=== PATIENT | male | born 1985 | race Caucasian/White ===

== ENCOUNTER 2017-07-27 14:46 | Emergency (ER) | payer MEDICAID, SELFPAY ==
[2017-07-27 14:46] VITALS: BP 161/85; PULSE 116; RESP 13; TEMP 37.3; O2SAT 95; BMI 31.0
--- NOTE | 2017-07-27 15:06 | RAD_ITS ---
STUDY: X-RAY CHEST REASON FOR EXAM: Male, 32 years old. Chest pain TECHNIQUE: PA and lateral views of the chest. COMPARISON: October 13, 2015 chest x-ray FINDINGS: The lungs are clear and expanded. There is no demonstrated pleural abnormality. Normal size heart. Normal mediastinum and stiven. Normal visualized pulmonary arteries. Normal visualized aortic arch and descending thoracic aorta. Normal visualized thoracic spine. Normal visualized ribs, clavicles, and shoulders. There is no demonstrated abnormality of the visualized soft tissue structures of the upper abdomen. RAD/Chest PA and Lateral IMPRESSION: Normal x-ray examination of the chest. Electronically Signed: Lindsay Moncada MD at 16:31 EST Tel , Service support ,
--- NOTE | 2017-07-27 15:06 | EKG12_ITS ---
Test Reason : CP Blood Pressure : / mmHG Vent. Rate : 109 BPM Atrial Rate : 109 BPM P-R Int : 164 ms QRS Dur : 066 ms QT Int : 298 ms P-R-T Axes : 048 048 028 degrees QTc Int : 401 ms Sinus tachycardia Otherwise normal ECG Confirmed by LUCA RIBERA ([id number]), editor house organ RYAN LARIOS ([id number] on 07/30/2017 1:18:59 PM Referred By: IRIS Confirmed By:LUCA RIBERA
[2017-07-27 15:26] LABS: Absolute Lymphocyte Count 2.39 X10^3/ul (0.83-4.51); Absolute Neutrophil Count 10.1 X10^3/uL (2.0-7.7); Basophil# 0.05 X10^3/uL; Basophil% 0.4 % (0-1); Eosinophil# 0.19 X10^3/uL; Eosinophils% 1.4 % (0-5); Hemoglobin 14.3 g/dl (13.0-16.5); Lymphocyte # 2.39 X10^3/ul (4.0); Lymphocyte % 17.4 % (19-41); Mean Corpuscular Hgb 30.6 pg (27.0-32.0); Mean Corpuscular Volume 89.9 fL (80-94); Mean Platelet Vol. 11.6 fl (6.2-12.0); Monocyte# 0.98 X10^3/uL; Monocyte% 7.1 % (0-10); Neutrophil # 10.11 X10^3/uL (2.7-7.7); Neutrophil % 73.4 % (47-70); Platelet Count 242 K/mm3 (150-450); RBC Distribution Width CV 13.6 % (11.6-14.6); RBC Distribution Width SD 45.1 fl (35.1-43.9); Red Blood Count 4.67 M/mm3 (4.6-6.2); White Blood Count 13.8 K/mm3 (4.4-11.0)
[2017-07-27 15:29] LABS: POSITIVE COUNT NO; POSITIVE DIFFERENTIAL NO; POSITIVE MORPHOLOGY NO
[2017-07-27 15:42] LABS: Anion Gap 10 (5-15); BUN 13 mg/dL (7-18); BUN/Creat Ratio 14.2 RATIO (10-20); Chloride 107 mmol/L (98-107); Creatinine, Serum 0.92 mg/dL (0.70-1.30); EST Glomerular Filtration Rate 102 mL/min (>60); Est Glom Filt Rate - Afr Amer 124 mL/min (>60); Estimated Creatinine Clearance 116.34 ml/min; Glucose 96 mg/dL (74-106); Potassium 3.6 mmol/L (3.5-5.1); Sodium Level 141 mmol/L (136-145)
[2017-07-27 15:50] LABS: D-Dimer Quantitative (DVT/PE) < 0.27 FEU/ug/m (0.27-0.49)
[2017-07-27 16:57] VITALS: BP 125/57; PULSE 100; RESP 16; O2SAT 96
--- NOTE | 2017-07-27 17:03 | ED.VISSUMM ---
- ER Visit Summary Date of Service: 07/27/17 Chief Complaint: Chest pain and shortness of breath History of Present Illness: The patient is a 32 M walking out of the store when he developed a thumping sensation mid chest that radiated through the back with shortness of breath and nausea. He is a smoker. He denies use of heroin, cocaine, but he does admit to marijuana use. He states he smokes 1+ pack a day. He does drink on weekends. He denies any fever, chills night sweats. He denies runny nose, postnasal drainage, earache or sore throat. He has had intermittent chest thumping over the last 1-2 weeks lasting 5-10 minutes. He presently denies any pain. He states he was given 4 baby aspirin and 1 nitro by squad. He states after he received the medication by the paramedics his pain resolved. He denies any leg pain, swelling or discoloration. There is no family history of coronary disease at young age. There is no family history of DVT or PE. He denies hematemesis, melena hematochezia. Denies black or maroon stool. He does have history of hemorrhoids. He denies orthostatic symptoms. Physical Examination: Patient's initial vital signs are remarkable for a heart rate of 116 and blood pressure 161/85. He seems slightly anxious. Respiratory was 13 and pulse ox 95% on room air. Head is atraumatic normocephalic. Pupils are equal round reactive. Extraocular muscles are intact. TMs are pearly white with landmarks noted. Nares patent with no drainage. Posterior pharynx without erythema or exudate. Uvula is midline. There is no dysphonia or dysphasia. Trachea is midline. There is no stridor with auscultation of the neck. Heart is regular without murmur, gallop or rub. S1 and S2 are normal. Lungs are clear to auscultation with good movement of air bilaterally. There is no chest pain to palpation. Abdomen is soft and nontender. There is no guarding or peritoneal findings. There is no palpable pulsatile mass. There is no abdominal bruit. Giang sign is negative. Negative Rovsing sign. There is no evidence of inguinal or umbilical hernia. There is no asymmetry, swelling, discoloration, leg vein distention, palpable cords or tenderness along the distribution of the deep venous system. Test Results: EKG reveals a sinus tachycardia rate of 109, otherwise normal. Two-view chest x-ray reveals normal cardiac silhouette, mediastinum, lung parenchyma and bony structures. White count elevated 13.8 with 73 segs no bands. Electrode panel is unremarkable. Troponin is less than 0.02 and d-dimer is less than 0.27. Most recent vitals at the time of dictation reveals a blood pressure 125/57, heart rate of 95, respiratory rate of 16 and no change in temperature. Emergency Department Course and Treatment: In light of the fact that he complained of chest pain with dyspnea and he had relief with aspirin and nitro EKG, chest x-ray was obtained. Since he has had several episodes over the past 2 weeks troponin was obtained and because there was a pleuritic component a d-dimer was obtained even though he has no risk factors since 2030% of patients who have VTE have no risk factors. Treatment Plan: Follow-up with PCP Disposition: Discharge To home in stable and improved condition Impression: Midsternal chest pain with dyspnea of unknown etiology History of tobacco use History of illicit drug use History of alcohol use This note was generated with Venturesityation software. It may contain incorrect words, spelling, and punctuation that were not noted in review of the chart prior to signing ED Disposition - Plan for ED Patient: Disposition: Home or Assisted Living Chief Complaint: Chest Pain Instructions: ED Chest Pain Atypical Unkn Cause Referrals: Aaron Lacey MD [Primary Care Provider] - 2 Days
--- NOTE | 2017-07-27 17:09 | ED.DCSUM_ITS ---
- ER Visit Summary Date of Service: 07/27/17 Chief Complaint: Chest pain and shortness of breath History of Present Illness: The patient is a 32 M walking out of the store when he developed a thumping sensation mid chest that radiated through the back with shortness of breath and nausea. He is a smoker. He denies use of heroin, cocaine, but he does admit to marijuana use. He states he smokes 1+ pack a day. He does drink on weekends. He denies any fever, chills night sweats. He denies runny nose, postnasal drainage, earache or sore throat. He has had intermittent chest thumping over the last 1-2 weeks lasting 5-10 minutes. He presently denies any pain. He states he was given 4 baby aspirin and 1 nitro by squad. He states after he received the medication by the paramedics his pain resolved. He denies any leg pain, swelling or discoloration. There is no family history of coronary disease at young age. There is no family history of DVT or PE. He denies hematemesis, melena hematochezia. Denies black or maroon stool. He does have history of hemorrhoids. He denies orthostatic symptoms. Physical Examination: Patient's initial vital signs are remarkable for a heart rate of 116 and blood pressure 161/85. He seems slightly anxious. Respiratory was 13 and pulse ox 95% on room air. Head is atraumatic normocephalic. Pupils are equal round reactive. Extraocular muscles are intact. TMs are pearly white with landmarks noted. Nares patent with no drainage. Posterior pharynx without erythema or exudate. Uvula is midline. There is no dysphonia or dysphasia. Trachea is midline. There is no stridor with auscultation of the neck. Heart is regular without murmur, gallop or rub. S1 and S2 are normal. Lungs are clear to auscultation with good movement of air bilaterally. There is no chest pain to palpation. Abdomen is soft and nontender. There is no guarding or peritoneal findings. There is no palpable pulsatile mass. There is no abdominal bruit. Giang sign is negative. Negative Rovsing sign. There is no evidence of inguinal or umbilical hernia. There is no asymmetry, swelling , discoloration, leg vein distention, palpable cords or tenderness along the distribution of the deep venous system. Test Results: EKG reveals a sinus tachycardia rate of 109, otherwise normal. Two-view chest x-ray reveals normal cardiac silhouette, mediastinum, lung parenchyma and bony structures. White count elevated 13.8 with 73 segs no bands. Electrode panel is unremarkable. Troponin is less than 0.02 and d- dimer is less than 0.27. Most recent vitals at the time of dictation reveals a blood pressure 125/57, heart rate of 95, respiratory rate of 16 and no change in temperature. Emergency Department Course and Treatment: In light of the fact that he complained of chest pain with dyspnea and he had relief with aspirin and nitro EKG, chest x-ray was obtained. Since he has had several episodes over the past 2 weeks troponin was obtained and because there was a pleuritic component a d- dimer was obtained even though he has no risk factors since 2030% of patients who have VTE have no risk factors. Treatment Plan: Follow-up with PCP Disposition: Discharge To home in stable and improved condition Impression: Midsternal chest pain with dyspnea of unknown etiology History of tobacco use History of illicit drug use History of alcohol use This note was generated with Aiboation software. It may contain incorrect words, spelling, and punctuation that were not noted in review of the chart prior to signing ED Disposition - Plan for ED Patient: Disposition: Home or Assisted Living Chief Complaint: Chest Pain Instructions: ED Chest Pain Atypical Unkn Cause Referrals: Aaron Lacey MD [Primary Care Provider] - 2 Days
[2017-07-27 17:24] VITALS: BP 149/87; PULSE 92; RESP 17; O2SAT 96
== END 2017-07-27 17:25 | disposition home or self-care (01) ==
PROVIDERS: Emergency Provider Emergency Medicine; Family Provider Family Medicine; PCP Family Medicine
DX: R07.9 Chest pain, unspecified (principal); R06.00 Dyspnea, unspecified; F17.200 Nicotine dependence, unspecified, uncomplicated; F12.90 Cannabis use, unspecified, uncomplicated; Z72.89 Other problems related to lifestyle
CPT/HCPCS: 71046; 80048; 84484; 85025; 85379; 93005; 99285; J7030; A4216

== ENCOUNTER 2017-10-15 07:54 | Emergency (ER) | payer MEDICAID, SELFPAY ==
[2017-10-15 07:55] VITALS: BP 155/99; PULSE 107; RESP 18; TEMP 36.8; O2SAT 97; BMI 31.1
--- NOTE | 2017-10-15 08:12 | ED.VISSUMM ---
- ER Visit Summary Date of Service: 10/15/17 Chief Complaint: Suicidal History of Present Illness: The patient is a 32 M who complains of mental instability. He admits to suicidal ideation with multiple plans. Patient reports increased financial stress over the past couple of months. He walked out of work last night after getting yelled at. He has been drinking beer this morning. He denies prior suicide attempts. He reports periods of depression in the past but has never required treatment. Physical Examination: Vital signs reveal blood pressure 155/99, heart rate 107. Head and neck examination is unremarkable. Heart is regular rate and rhythm. Lung sounds are clear. Abdomen is soft nontender. Psychiatric evaluation does reveal normal speech pattern. He does appear depressed and does admit to suicidal thoughts. Test Results: CBC, BMP are unremarkable. Tox screen is negative. EtOH returns 87. Emergency Department Course and Treatment: Francisco from the counseling center came and evaluated the patient. At this time he has been able to metabolize the alcohol. At this point he does report good emotional support from his . He denies that he will hurt himself, stating that he needs to be here for his 5-year-old son. Patient has agreed to daily phone calls from the counseling center and will follow up with Francisco in 2 days. I went back and reevaluate the patient myself and he does reiterate this. Patient be discharged with close follow-up at this time. Treatment Plan: [] Disposition: Discharge Impression: 1. Depression This note was generated with App[employer]ka dictation software. It may contain incorrect words, spelling, and punctuation that were not noted in review of the chart prior to signing ED Disposition - Plan for ED Patient: Chief Complaint: Suicidal Referrals: Aaron Lacey MD [Primary Care Provider] -
[2017-10-15 08:33] LABS: Absolute Neutrophil Count 6.2 X10^3/uL (2.0-7.7); Basophil# 0.04 X10^3/uL; Basophil% 0.5 % (0-1); Eosinophil# 0.19 X10^3/uL; Eosinophils% 2.1 % (0-5); Hematocrit 44.4 % (40-54); Hemoglobin 15.1 g/dl (13.0-16.5); Lymphocyte % 21.5 % (19-41); Mean Corpuscular Hgb 29.9 pg (27.0-32.0); Mean Corpuscular Volume 87.9 fL (80-94); Mean Platelet Vol. 10.9 fl (6.2-12.0); Monocyte# 0.53 X10^3/uL; Neutrophil # 6.18 X10^3/uL (2.7-7.7); Neutrophil % 69.8 % (47-70); POSITIVE COUNT NO; POSITIVE DIFFERENTIAL NO; POSITIVE MORPHOLOGY NO; Platelet Count 237 K/mm3 (150-450); RBC Distribution Width CV 13.1 % (11.6-14.6); RBC Distribution Width SD 41.9 fl (35.1-43.9); Red Blood Count 5.05 M/mm3 (4.6-6.2); White Blood Count 8.9 K/mm3 (4.4-11.0)
[2017-10-15 08:44] LABS: Anion Gap 10 (5-15); BUN 13 mg/dL (7-18); BUN/Creat Ratio 13.7 RATIO (10-20); Chloride 107 mmol/L (98-107); Creatinine, Serum 0.95 mg/dL (0.70-1.30); EST Glomerular Filtration Rate 98 mL/min (>60); Est Glom Filt Rate - Afr Amer 118 mL/min (>60); Estimated Creatinine Clearance 112.67 ml/min; Glucose 89 mg/dL (74-106); Potassium 3.7 mmol/L (3.5-5.1); Sodium Level 141 mmol/L (136-145)
[2017-10-15 08:46] LABS: Amphetamine Urine VISTA NEGATIVE (<1000 ng/mL); Barbiturate Urine VISTA NEGATIVE (< 200 ng/mL); Benzodiazepine Urine VISTA NEGATIVE (< 200 ng/mL); Cocaine Urine VISTA NEGATIVE (< 300 ng/mL); Ecstacy Urine VISTA NEGATIVE (< 500 ng/mL); Methadone Urine VISTA NEGATIVE (< 300 ng/mL); PCP Urine VISTA NEGATIVE (< 25 ng/mL); THC Urine VISTA NEGATIVE (< 50 ng/mL); Vista UDS pH Range 6
--- NOTE | 2017-10-15 09:11 | NURSING ---
CALLED CRISIS, TALKED TO KALYAN. SHE WILL LET ISAAC KNOW ABOUT PATIENT
--- NOTE | 2017-10-15 09:44 | NURSING ---
ISAAC, CRISIS, IN ER
[2017-10-15 11:40] VITALS: BP 140/80; PULSE 74; RESP 18; O2SAT 98
--- NOTE | 2017-10-15 11:44 | ED.RN ---
pt becomes very angry. states he is leaving at 3 come hell or high water. pt encouraged and does return to room. and gomez aware. medication ordered. on hold right now
--- NOTE | 2017-10-15 13:42 | ED.DEP ---
ED Disposition - Plan for ED Patient: Disposition: Home or Assisted Living Chief Complaint: Suicidal Instructions: ED Depression Referrals: Aaron Lacey MD [Primary Care Provider] - Counseling,Center [GROUP OF PHYSICIANS] - Keep Michaelle appointment
[2017-10-15 13:47] VITALS: PULSE 92; RESP 12; O2SAT 98
== END 2017-10-15 13:48 | disposition home or self-care (01) ==
PROVIDERS: Emergency Provider Emergency Medicine; Family Provider Family Medicine; PCP Family Medicine
DX: F32.9 Major depressive disorder, single episode, unspecified (principal); K21.9 Gastro-esophageal reflux disease without esophagitis; R45.851 Suicidal ideations; Z72.0 Tobacco use; F12.929 Cannabis use, unspecified with intoxication, unspecified
CPT/HCPCS: 36415; 80048; 80307; 80320; 85025; 99283; G0480

== ENCOUNTER 2021-07-10 18:09 | Emergency (ER) | payer MEDICAID, SELFPAY ==
[2021-07-10 18:10] VITALS: BP 135/85; PULSE 107; RESP 18; TEMP 35.8; O2SAT 96; BMI 35.7
--- NOTE | 2021-07-10 20:53 | EKG12_ITS ---
Test Reason : COLD LIKE SYMPTOMS Blood Pressure : / mmHG Vent. Rate : 098 BPM Atrial Rate : 098 BPM P-R Int : 178 ms QRS Dur : 068 ms QT Int : 324 ms P-R-T Axes : 061 029 046 degrees QTc Int : 413 ms Normal sinus rhythm Low voltage QRS (Limb Leads) Confirmed by NIRMAL CARLSON, MAGGY ([id number]), desk editor CATALINA RENAE ([id number]) on 07/11/2021 11:28:44 AM Referred By: MARYLU Confirmed By:MAGGY KINNEY MD
--- NOTE | 2021-07-10 20:54 | EDS_ITS ---
HPI History of Present Illness Chief Complaint: Cold Sx Informant: patient Narrative Narrative: This is a generally healthy smoker who was not vaccinated against COVID. He has had about 3 or 4 days of some cough fevers chills myalgias nausea vomiting and diarrhea. He states he still eating and drinking fine but he has vomited a couple times. No blood. He occasionally feels slightly lightheaded. He is getting better. He does not have chest pain. He is not actually dyspneic. 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 Nothing makes his symptoms better or worse. [facility] Medical History Spleen disorder Home Medications bupropion HCl 150 mg PO DAILY 10/15/17 [History Last Taken Unknown] Allergy/AdvReac Type Severity Reaction Status Date / Time meperidine [From Demerol] AdvReac Other Verified 07/10/21 18:11 morphine AdvReac Other Verified 07/10/21 18:11 Social History Smoking Status: Current every day smoker tobacco type: cigarettes ROS ROS ED Constitutional Constitutional ED: Reports chills and fever(s) Eyes Eyes: Denies blurry vision ENT ENT ED: Reports rhinorrhea; Denies sore throat Cardiovascular Cardiovascular: Denies chest pain or palpitations Respiratory/Chest Respiratory/Chest: Reports cough; Denies dyspnea or sputum Gastrointestinal Gastrointestinal: Reports diarrhea, nausea and vomiting; Denies abdominal pain Genitourinary Genitourinary ED: Denies dysuria Musculoskeletal Musculoskeletal: Reports myalgias Integumentary Denies rash Neurologic Neurologic: Reports headache(s); Denies paresthesias or weakness Psychiatric Psychiatric: Denies anxiety or depression Endocrine Endocrinology: Denies polydipsia or polyuria Allergic/Immunologic Allergic/Immunologic ED: Denies mouth swelling or urticaria EXAM Physical Exam Const Vital Signs: 07/10/21 18:10 07/10/21 20:42 Temperature 96.5 F L Temperature Source Temporal Pulse Rate 107 H Respiratory Rate 18 Respiratory Effort Normal Respiratory Pattern Normal Blood Pressure 135/85 H Blood Pressure Mean 101 Pulse Ox 96 Oxygen Delivery Method Room Air Positive well nourished, well developed and obese General Appearance ED: well developed and NAD; Negative for cyanotic or diaphoretic Nutritional Appearance: obese HEENT Reports moist mucous membranes Eyes General Eye ED: Negative for pale conjunctiva or scleral icterus Neck no JVD Chest Wall inspection of chest normal Resp normal respiratory effort and clear to auscultation bilaterally Effort and Inspection: Negative for pain with movement Auscultation: Negative for rales, rhonchi or wheezes Cardio regular rate and regular rhythm GI normal to inspection, nondistended, normoactive bowel sounds and non-tender Palpation: soft Back/Spine no CVA tenderness Extremity normal to inspection Neuro oriented x3 Sensorium / Orientation: alert Psych mental status grossly normal Skin no rashes or lesions noted and no wounds MDM MDM MDM Narrative Medical decision making narrative: Patient's Covid is positive. His EKG is overall unremarkable. Patient would like to go home. We discussed options of therapy but he does not want to pursue those. We discussed reasons to return. Lab Data Attestation: I reviewed the patient's lab results. EKG Initial EKG: Comments: EKG done due to occasional lightheaded feeling without chest pain or dyspnea. EKG read by me shows a normal sinus rhythm with a rate of 98. No acute ST elevation or depression. There is an irregular baseline. No ectopy. CA interval, QRS duration and QTc are normal. Discharge Plan Triage Chief Complaint: Cold Sx ED Provider: Scott Frausto Dx/Rx/DC Orders Clinical Impression: COVID Instructions: Coronavirus Disease 2019 (COVID-19): Caring for Yourself or Others Prescriptions: No Action bupropion HCl 150 MG Tab.Er.24h 150 mg PO DAILY RF: 0 Primary Care Provider: Aaron Lacey Referrals: Aaron Lacey MD [Primary Care Provider] - 10-14 Days if not better Disposition Disposition: Home, Self Care
--- NOTE | 2021-07-11 13:25 | CASEMGMT ---
EFFIE PALMER ED follow-up: Date of ER visit: 07/10/2021 Presenting ER complaint: Cold Sx COVID positive EFFIE PALMER placed call to patient's telephone number listed on demographics- patient answered. Patient states feeling about the same today. When questioned, patient states a little short of breath but not too bad. Patient state he does not have a pulse oximeter for home use but states he will ask a family member to bring one when available. Patient instructed SpO2 should be > 89%, even when walking. Patient states eating and drinking well. Patient instructed on symptomatic treatment, quarantine and red flag signs and symptoms to monitor for. Voices understanding. Patient denies questions or concerns. EFFIE Lopez CM
== END 2021-07-10 22:26 | disposition home or self-care (01) ==
PROVIDERS: Emergency Provider Emergency Medicine; PCP Family Medicine; Visit Provider Emergency Medicine
DX: U07.1 COVID-19 (principal); F17.210 Nicotine dependence, cigarettes, uncomplicated; Z28.3 Underimmunization status
CPT/HCPCS: 87426; 93005; 99282

== ENCOUNTER 2021-10-04 01:53 | Emergency (ER) | payer MEDICAID, SELFPAY ==
[2021-10-04 01:54] VITALS: PULSE 144; RESP 24; TEMP 36.2; O2SAT 97; BMI 38.7
[2021-10-04 01:59] VITALS: BP 158/105
--- NOTE | 2021-10-04 02:09 | EKG12_ITS ---
Test Reason : CP Blood Pressure : / mmHG Vent. Rate : 136 BPM Atrial Rate : 136 BPM P-R Int : 168 ms QRS Dur : 072 ms QT Int : 258 ms P-R-T Axes : 058 099 041 degrees QTc Int : 388 ms Sinus tachycardia Otherwise normal ECG Confirmed by NIKIA CARLSON, MIKE ([id number]), continuity editor CATALINA RENAE ([id number]) on 10/06/2021 8:07:16 AM Referred By: STANLEY Confirmed By:INEZ MONTEJO MD
--- NOTE | 2021-10-04 02:09 | RAD_ITS ---
STUDY: X-RAY CHEST REASON FOR EXAM: Male, 36 years old. chest pain TECHNIQUE: AP portable upright COMPARISON: 07/27/2017. FINDINGS: The lungs are clear and expanded. There is no demonstrated pleural abnormality. Normal size heart. Normal mediastinum and stiven. Normal visualized pulmonary arteries. Normal visualized aortic arch and descending thoracic aorta. Normal visualized thoracic spine. Normal visualized ribs, clavicles, and shoulders. There is no demonstrated abnormality of the visualized soft tissue structures of the upper abdomen. RAD/Chest 1 View (Portable) IMPRESSION: Normal x-ray examination of the chest. Electronically Signed: Daniel Galvan MD at 2:43 EDT ,
--- NOTE | 2021-10-04 02:11 | EX.ED.DYSGE1 ---
HPI History of Present Illness Chief Complaint: Chest Pain Narrative Narrative: Patient is a 36-year-old male with history of depression who is on Wellbutrin and Zoloft. He reports that he smokes/vapes as well. He states that he was sleeping when he woke up feeling mild chest discomfort. He states that he feels slightly lightheaded and short of breath associated with this. He denies any trauma prior to the pain beginning or sick symptoms. He denies any previous cardiac event and states that no first-degree relatives have had any type of heart attack. 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 Patient admits to using marijuana but denies any other illicit drug use. He also denies any excessive stimulant use. He states that because of his persistent symptoms he was concerned this could be cardiac and secondary to this comes in for evaluation [facility] Medical History Spleen disorder Home Medications bupropion HCl 150 mg PO DAILY 10/15/17 [History Last Taken Unknown] Allergy/AdvReac Type Severity Reaction Status Date / Time meperidine [From Demerol] AdvReac Other Verified 10/04/21 01:54 morphine AdvReac Other Verified 10/04/21 01:54 Social History Smoking Status: Current every day smoker tobacco type: cigarettes ROS ROS ED Constitutional Constitutional ED: Denies chills or fever(s) ENT ENT ED: Reports rhinorrhea; Denies sore throat Cardiovascular Cardiovascular: Reports chest pain and racing heartbeat Respiratory/Chest Respiratory/Chest: Denies cough or dyspnea Gastrointestinal Gastrointestinal: Reports diarrhea; Denies abdominal pain, nausea or vomiting Genitourinary Genitourinary ED: Denies dysuria Musculoskeletal Musculoskeletal: Denies myalgias Integumentary Denies rash Neurologic Neurologic: Denies headache(s) Psychiatric Psychiatric: Reports anxiety Hematologic/Lymphatic Hematologic/Lymphatic: Denies easy bleeding or easy bruising EXAM Physical Exam Const Vital Signs: 10/04/21 01:54 10/04/21 01:59 10/04/21 04:29 Temperature 97.1 F L 100.2 F H Temperature Source Temporal Temporal Pulse Rate 144 H Respiratory Rate 24 H Blood Pressure 158/105 H Blood Pressure Mean 122 Pulse Ox 97 Oxygen Delivery Method Room Air 10/04/21 04:43 Temperature Temperature Source Pulse Rate 108 H Respiratory Rate Blood Pressure 179/90 H Blood Pressure Mean 119 Pulse Ox Oxygen Delivery Method Positive well nourished and well developed General Appearance ED: well developed HEENT HEENT Narrative: Bilateral TMs are retracted but show no secondary changes to suggest infection. There is cobblestoning the posterior pharynx without airway edema or compromise Eyes PERRL and EOMs intact bilaterally Neck supple Neck Narrative: No carotid bruit noted. No enlargement or nodule or goiter noted to the patient's thyroid gland Chest Wall palpation of chest normal Resp normal respiratory effort Resp Narrative: Breath sounds are diminished throughout with faint expiratory wheeze consistent with history of smoking Cardio regular rhythm Rate: tachycardic and other Other Details: Radial pulses are +2-4 bilaterally are equal and symmetric GI normal to inspection, nondistended, normoactive bowel sounds, non-tender, non-distended and no masses GI Narrative: No voluntary guarding or rigidity no pulsatile mass Auscultation: normoactive bowel sounds Palpation: soft Extremity normal to inspection Extremity Narrative: No asymmetric edema no pitting edema negative Homans' sign bilaterally Neuro oriented x3 and CN's II-XII intact bilaterally Sensorium / Orientation: alert Motor Exam: strength 5/5 throughout Psych Psych Narrative: Patient has a mildly anxious affect without homicidal or suicidal ideation Mood & Affect: anxious Skin no rashes or lesions noted MDM MDM MDM Narrative Medical decision making narrative: Patient presented to the ER afebrile but was hypertensive and tachycardic. He has low risk factors for cardiac disease with his only 1 being that he smokes. However despite tachycardia and report of chest discomfort elected perform a cardiac work-up. Patient's white blood cell count is normal he has only risk factor of travel for DVT/PE but his D-dimer is negative. He has mild dehydration with elevation to his creatinine but otherwise no electrolyte derangement. His initial and delta troponin was 3 then 4 with only a one-point variation there is no need for admission to the hospital. On reevaluation the patient felt warm to touch so a temperature was rechecked and it is now elevated. With him complaining of mild loose stool and lightheadedness as well as having some congestion and now the fever I do feel symptoms are related to influenza. I offered the patient a swab but he refused at this time. His heart rate did improve with reduction of fever as well as IV fluids and his blood pressure began to reduce as well. At this time he does not have signs of endorgan damage secondary to the hypertension and there are no obvious findings to suggest we are missing a pneumonia or intestinal infection and therefore do not feel there is need for further work-up and patient can be discharged home and follow-up on an outpatient basis. Did test MDMA on his talk screen but does take Wellbutrin and Wellbutrin can cause false positive for this. As the patient admits to using marijuana but no other illicit substances I do believe this is most likely a false positive. As there is no cocaine present and do not feel there is need for admission either Lab Data Attestation: I reviewed the patient's lab results. Labs: Laboratory Results - last 24 hr 10/04/21 10/04/21 10/04/21 02:05 02:05 02:05 WBC 10.9 RBC 5.18 Hgb 14.2 Hct 44.1 MCV 85.1 MCH 27.4 MCHC 32.2 RDW Std Deviation 45.0 H RDW Coeff of Shaheen 14.6 Plt Count 222 MPV 11.2 Immature Gran % (Auto) 0.200 Neut % (Auto) 88.2 H Lymph % (Auto) 6.3 L [place] % (Auto) 3.5 Eos % (Auto) 1.2 Baso % (Auto) 0.6 Absolute Neuts (auto) 9.6 H Absolute Lymphs (auto) 0.68 L Nucleated RBC % 0 D-Dimer Quant (PE/DVT) 0.44 Sodium 136 Potassium 4.3 Chloride 103 Carbon Dioxide 24.0 Anion Gap 9 BUN 20 H Creatinine 1.32 H Estim Creat Clear Calc 78.11 Est GFR (MDRD) Af Amer 79 Est GFR (MDRD) Non-Af 65 BUN/Creatinine Ratio 15.2 Glucose 153 H Calcium 8.8 Magnesium 2.2 Troponin I High Sens 3 TSH 1.89 Urine Opiates Screen Urine Methadone Screen Ur Barbiturates Screen Ur Phencyclidine Scrn Ur Amphetamines Screen MDMA (Ecstasy) Screen U Benzodiazepines Scrn Urine Cocaine Screen U Cannabinoids Screen Ur Drug Screen Comment 10/04/21 10/04/21 02:25 03:55 WBC RBC Hgb Hct MCV MCH MCHC RDW Std Deviation RDW Coeff of Shaheen Plt Count MPV Immature Gran % (Auto) Neut % (Auto) Lymph % (Auto) [place] % (Auto) Eos % (Auto) Baso % (Auto) Absolute Neuts (auto) Absolute Lymphs (auto) Nucleated RBC % D-Dimer Quant (PE/DVT) Sodium Potassium Chloride Carbon Dioxide Anion Gap BUN Creatinine Estim Creat Clear Calc Est GFR (MDRD) Af Amer Est GFR (MDRD) Non-Af BUN/Creatinine Ratio Glucose Calcium Magnesium Troponin I High Sens 4 TSH Urine Opiates Screen NEGATIVE Urine Methadone Screen NEGATIVE Ur Barbiturates Screen NEGATIVE Ur Phencyclidine Scrn NEGATIVE Ur Amphetamines Screen NEGATIVE MDMA (Ecstasy) Screen POSITIVE H U Benzodiazepines Scrn NEGATIVE Urine Cocaine Screen NEGATIVE U Cannabinoids Screen NEGATIVE Ur Drug Screen Comment Radiography Diagnostic Testing: Clinical Impression(s) from Imaging Studies Chest X-Ray 10/04/21 02:09 IMPRESSION: Normal x-ray examination of the chest. Electronically Signed: Daniel Galvan MD at 2:43 EDT , Discharge Plan Triage Chief Complaint: Chest Pain ED Provider: David Talavera Dx/Rx/DC Orders Clinical Impression: Chest pain of uncertain etiology, Sinus tachycardia, Mild dehydration Instructions: Understanding Tachycardia, ED Chest Pain, Noncardiac, ED Influenza (Adult) Prescriptions: No Action bupropion HCl 150 MG tablet extended release 24 hr 150 mg PO DAILY RF: 0 Stand Alone Forms: ED Work / School Excuse Primary Care Provider: Aaron Lacey Referrals: Aaron Lacey MD [Primary Care Provider] - Activity Restrictions/Additional Instructions: Please keep yourself well-hydrated and take Tylenol and Motrin to help control any fever. Please return to the ER should you have any further concerns Disposition Disposition: Home, Self Care
[2021-10-04] MEDS: 0.9% Normal Saline 1,000 ML 999 ML IV ×2 (02:19→03:16)
[2021-10-04 02:20] LABS: Absolute Lymphocyte Count 0.68 X10^3/uL (0.83-4.51); Absolute Neutrophil Count 9.6 X10^3/uL (2.0-7.7); Basophil# 0.06 X10^3/uL; Basophil% 0.6 % (0-1); Eosinophil# 0.13 X10^3/uL; Eosinophils% 1.2 % (0-5); Hematocrit 44.1 % (40-54); Hemoglobin 14.2 g/dL (13.0-16.5); Lymphocyte # 0.68 X10^3/ul (0.83-4.51); Lymphocyte % 6.3 % (19-41); Mean Corp Hgb Conc 32.2 g/dL (32-36); Mean Corpuscular Hgb 27.4 pg (27.0-32.0); Mean Corpuscular Volume 85.1 fL (80-94); Mean Platelet Vol. 11.2 fl (6.2-12.0); Monocyte# 0.38 X10^3/uL; Monocyte% 3.5 % (0-10); NRBC Flagged by Analyzer 0 % (0-5); Neutrophil # 9.61 X10^3/uL (2.7-7.7); Neutrophil % 88.2 % (47-70); Platelet Count 222 K/mm3 (150-450); RBC Distribution Width CV 14.6 % (11.6-14.6); Red Blood Count 5.18 M/mm3 (4.6-6.2); White Blood Count 10.9 K/mm3 (4.4-11.0)
[2021-10-04] MEDS: Aspirin 325 MG Tablet PO (02:20)
[2021-10-04 02:30] LABS: D-Dimer Quantitative (DVT/PE) 0.44 FEU/ug/m (0.27-0.49)
[2021-10-04 02:44] LABS: Anion Gap 9 (5-15); BUN 20 mg/dL (7-18); BUN/Creat Ratio 15.2 RATIO (10-20); Calcium,Total 8.8 mg/dL (8.5-10.1); Chloride 103 mmol/L (98-107); Creatinine, Serum 1.32 mg/dL (0.70-1.30); EST Glomerular Filtration Rate 65 mL/min (>60); Est Glom Filt Rate - Afr Amer 79 mL/min (>60); Estimated Creatinine Clearance 78.11 ml/min; Glucose 153 mg/dL (74-106); Magnesium 2.2 mg/dL (1.6-2.6); Potassium 4.3 mmol/L (3.5-5.1); Sodium Level 136 mmol/L (136-145); Thyroid Stim Hormone (TSH) 1.89 uIU/mL (0.358-3.74); Troponin-I HS 3 pg/mL (3.0-78.0)
[2021-10-04 02:55] LABS: Amphetamine Urine VISTA NEGATIVE (<1000 ng/mL); Barbiturate Urine VISTA NEGATIVE (< 200 ng/mL); Benzodiazepine Urine VISTA NEGATIVE (< 200 ng/mL); Cocaine Urine VISTA NEGATIVE (< 300 ng/mL); Ecstacy Urine VISTA POSITIVE (< 500 ng/mL); Methadone Urine VISTA NEGATIVE (< 300 ng/mL); PCP Urine VISTA NEGATIVE (< 25 ng/mL); THC Urine VISTA NEGATIVE (< 50 ng/mL); Vista UDS pH Range 5
[2021-10-04 04:17] LABS: Troponin-I HS 4 pg/mL (3.0-78.0)
[2021-10-04 04:29] VITALS: TEMP 37.9
[2021-10-04] MEDS: Labetalol (Prefilled) 20 MG/4 ML IV (04:41)
[2021-10-04] MEDS: Meclizine HCl 25 MG Tablet PO (04:42)
[2021-10-04] MEDS: Acetaminophen 500 MG Tablet 1000 MG PO (04:42)
[2021-10-04 04:43] VITALS: BP 179/90; PULSE 108
[2021-10-04 05:02] VITALS: BP 147/80; PULSE 74; RESP 17; O2SAT 98
== END 2021-10-04 05:05 | disposition home or self-care (01) ==
PROVIDERS: Emergency Provider Emergency Medicine; PCP Family Medicine; Visit Provider Emergency Medicine
DX: R07.9 Chest pain, unspecified (principal); R19.7 Diarrhea, unspecified; F12.90 Cannabis use, unspecified, uncomplicated; R42 Dizziness and giddiness; F17.210 Nicotine dependence, cigarettes, uncomplicated; E86.0 Dehydration; F32.A Depression, unspecified; R06.02 Shortness of breath
CPT/HCPCS: 71045; 80048; 80307; 83735; 84443; 84484; 85025; 85379; 93005; 99283; J7030; A4216

== ENCOUNTER → 2021-11-02 | Outpatient (CLI) | payer MEDICAID, SELFPAY ==
--- NOTE | 2021-11-02 17:22 | STRESSREP ---
Stress Test Report Exercise stress test. 36-year-old male with a history of chest pain. Stress protocol: Resting KG demonstrates normal sinus rhythm with a rate of 89 bpm normal intervals are noted.The patient exercised according to regular Arnav protocol for total duration of 5 minutes completing 2 minutes into stage II of the Arnav protocol. The maximum heart rate attained was 164 bpm which was 88% of max impacted heart rate the maximum workload was 7 metabolic equivalents. At rest there were no ST or T wave changes noted to suggest ischemia and at peak exercise upsloping ST changes were noted which did not meet the criteria for ischemia. The peak blood pressure was 230/82 mmHg. Rate-pressure part was 37,720. Conclusion: Exercise stress test with no EKG criteria for ischemia at a moderate workload. Hypertensive response to exercise. Good function aerobic capacity.
== END | disposition home or self-care (01) ==
LOC: CVS 10:09
PROVIDERS: PCP Family Medicine; Referring Provider Family Medicine; Visit Provider Family Medicine
DX: R07.9 Chest pain, unspecified (principal); R00.2 Palpitations; R00.0 Tachycardia, unspecified; Z82.49 Family history of ischemic heart disease and other diseases of the circulatory system
CPT/HCPCS: 93017

== ENCOUNTER 2022-01-24 23:55 | Emergency (ER) | payer MEDICAID, SELFPAY ==
[2022-01-24 23:55] VITALS: BP 195/126; PULSE 130; RESP 22; TEMP 36.9; O2SAT 94; BMI 36.5
[2022-01-25] VITALS (13 sets, daily range): BP systolic 133–174; BP diastolic 87–119; PULSE 91–122; RESP 16–20; O2SAT 94–98
[2022-01-25] MEDS: Ziprasidone IM 20 MG/ML VIAL IM ×2 (00:27→06:23)
[2022-01-25 00:51] LABS: Absolute Lymphocyte Count 2.13 X10^3/uL (0.83-4.51); Absolute Neutrophil Count 9.5 X10^3/uL (2.0-7.7); Basophil# 0.08 X10^3/uL; Basophil% 0.6 % (0-1); Eosinophil# 0.12 X10^3/uL; Hematocrit 44.7 % (40-54); Hemoglobin 13.9 g/dL (13.0-16.5); Lymphocyte # 2.13 X10^3/ul (0.83-4.51); Lymphocyte % 16.9 % (19-41); Mean Corp Hgb Conc 31.1 g/dL (32-36); Mean Corpuscular Hgb 25.9 pg (27.0-32.0); Mean Corpuscular Volume 83.4 fL (80-94); Mean Platelet Vol. 11.1 fl (6.2-12.0); Monocyte% 5.6 % (0-10); NRBC Flagged by Analyzer 0 % (0-5); Neutrophil % 75.3 % (47-70); Platelet Count 261 K/mm3 (150-450); RBC Distribution Width CV 16.2 % (11.6-14.6); RBC Distribution Width SD 49.1 fl (35.1-43.9); Red Blood Count 5.36 M/mm3 (4.6-6.2); White Blood Count 12.6 K/mm3 (4.4-11.0)
--- NOTE | 2022-01-25 00:54 | ED.RN ---
per Dr Osuna patient does not need a sitter, patient reports being homicidal and not suicidal.
[2022-01-25 01:05] LABS: Anion Gap 12 (5-15); BUN 13 mg/dL (7-18); BUN/Creat Ratio 9.5 RATIO (10-20); Calcium,Total 9.5 mg/dL (8.5-10.1); Chloride 108 mmol/L (98-107); Creatinine, Serum 1.37 mg/dL (0.70-1.30); EST Glomerular Filtration Rate 63 mL/min (>60); Est Glom Filt Rate - Afr Amer 76 mL/min (>60); Estimated Creatinine Clearance 72.12 ml/min; Glucose 152 mg/dL (74-106); Potassium 3.5 mmol/L (3.5-5.1); Sodium Level 140 mmol/L (136-145)
--- NOTE | 2022-01-25 01:34 | EX.ED.DYSGE1 ---
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 Patient presents with police for mental health evaluation. He appears to be intoxicated and is laughing inappropriately at times. His mood is very labile and he will start crying. He is difficult to redirect. He is threatening to get up and leave. He is threatening to assault police officers at bedside. He does admit to drinking a lot of alcohol tontoi. He states he uses weed occasionally but did not use today. [facility] Medical History (Updated 01/25/22 @ 06:[address] Zenia Osuna MD) Diabetes GERD (gastroesophageal reflux disease) Spleen disorder Home Medications bupropion HCl 150 mg 24 hr tablet, extended release 150 mg PO DAILY 10/15/17 [History Last Taken Unknown] metformin 500 mg tablet 500 mg DAILY 01/25/22 [History Last Taken Unknown] omeprazole 20 mg capsule,delayed release 20 mg DAILY 01/25/22 [History Last Taken Unknown] Allergy/AdvReac Type Severity Reaction Status Date / Time meperidine [From Demerol] AdvReac Other Verified 01/25/22 00:02 morphine AdvReac Other Verified 01/25/22 00:02 Surgical History (Updated 01/25/22 @ 01:[address] Zenia Osuna MD) History of hernia repair Social History Smoking Status: Current every day smoker tobacco type: cigarettes ROS ROS ED Review of Systems ROS Unobtainable: due to mental status Constitutional Constitutional ED: Denies chills or fever(s) ENT ENT ED: Denies rhinorrhea or sore throat Cardiovascular Cardiovascular: Denies chest pain or palpitations Respiratory/Chest Respiratory/Chest: Denies cough or dyspnea Gastrointestinal Gastrointestinal: Denies abdominal pain or vomiting Musculoskeletal Musculoskeletal: Denies back pain or extremity pain Integumentary Denies Abrasions or rash Neurologic Neurologic: Denies headache(s) or weakness Psychiatric Psychiatric: Reports other Details: Homicidal thoughts Allergic/Immunologic Allergic/Immunologic ED: Denies lip swelling or urticaria EXAM Physical Exam Narrative Exam Narrative: Patient sitting upright in bed yelling at police officers at bedside. He is difficult to redirect. Const Vital Signs: 01/24/22 23:55 01/25/22 00:55 01/25/22 01:55 Temperature 98.4 F Temperature Source Temporal Pulse Rate 130 H Respiratory Rate 22 H 18 16 Blood Pressure 195/126 H Blood Pressure Mean 149 Pulse Ox 94 Oxygen Delivery Method Room Air 01/25/22 02:55 01/25/22 03:00 01/25/22 04:00 Temperature Temperature Source Pulse Rate Respiratory Rate 16 16 16 Blood Pressure Blood Pressure Mean Pulse Ox Oxygen Delivery Method 01/25/22 05:00 Temperature Temperature Source Pulse Rate 102 H Respiratory Rate 20 H Blood Pressure 157/92 H Blood Pressure Mean 113 Pulse Ox 98 Oxygen Delivery Method Room Air Positive obese Nutritional Appearance: obese HEENT Reports moist mucous membranes Eyes EOMs intact bilaterally Chest Wall inspection of chest normal and palpation of chest normal Resp normal respiratory effort and clear to auscultation bilaterally Cardio Rate: tachycardic GI non-tender Palpation: soft Extremity normal to inspection Neuro oriented x3 and no sensory deficits noted Motor Exam: strength 5/5 throughout Psych Psych Narrative: Admits to homicidal ideation. When asked if he has continued thoughts of going to hurt someone he states if I get mad enough. He denies suicidal ideation to me stating why would I hurt myself, I am pretty awesome. Attitude: agitated Mood & Affect: anxious Skin no rashes or lesions noted and no wounds MDM MDM MDM Narrative Medical decision making narrative: Patient did require Geodon as he was difficult to redirect and was threatening to staff. Lab work and COVID swab obtained for medical clearance for potential psychiatric placement. Lab Data Attestation: I reviewed the patient's lab results. Labs: Laboratory Results - last 24 hr 01/25/22 01/25/22 01/25/22 00:12 00:40 00:40 WBC 12.6 H RBC 5.36 Hgb 13.9 Hct 44.7 MCV 83.4 MCH 25.9 L MCHC 31.1 L RDW Std Deviation 49.1 H RDW Coeff of Shaheen 16.2 H Plt Count 261 MPV 11.1 Immature Gran % (Auto) 0.600 Neut % (Auto) 75.3 H Lymph % (Auto) 16.9 L [place] % (Auto) 5.6 Eos % (Auto) 1.0 Baso % (Auto) 0.6 Absolute Neuts (auto) 9.5 H Absolute Lymphs (auto) 2.13 Nucleated RBC % 0 Sodium 140 Potassium 3.5 Chloride 108 H Carbon Dioxide 20.0 L Anion Gap 12 BUN 13 Creatinine 1.37 H Estim Creat Clear Calc 72.12 Est GFR (MDRD) Af Amer 76 Est GFR (MDRD) Non-Af 63 BUN/Creatinine Ratio 9.5 L Glucose 152 H Calcium 9.5 Urine Opiates Screen NEGATIVE Urine Methadone Screen NEGATIVE Ur Barbiturates Screen NEGATIVE Ur Phencyclidine Scrn NEGATIVE Ur Amphetamines Screen NEGATIVE MDMA (Ecstasy) Screen NEGATIVE U Benzodiazepines Scrn NEGATIVE Urine Cocaine Screen NEGATIVE U Cannabinoids Screen NEGATIVE Ur Drug Screen Comment Ethyl Alcohol 01/25/22 01/25/22 00:40 05:52 WBC RBC Hgb Hct MCV MCH MCHC RDW Std Deviation RDW Coeff of Shaheen Plt Count MPV Immature Gran % (Auto) Neut % (Auto) Lymph % (Auto) [place] % (Auto) Eos % (Auto) Baso % (Auto) Absolute Neuts (auto) Absolute Lymphs (auto) Nucleated RBC % Sodium Potassium Chloride Carbon Dioxide Anion Gap BUN Creatinine Estim Creat Clear Calc Est GFR (MDRD) Af Amer Est GFR (MDRD) Non-Af BUN/Creatinine Ratio Glucose Calcium Urine Opiates Screen Urine Methadone Screen Ur Barbiturates Screen Ur Phencyclidine Scrn Ur Amphetamines Screen MDMA (Ecstasy) Screen U Benzodiazepines Scrn Urine Cocaine Screen U Cannabinoids Screen Ur Drug Screen Comment Ethyl Alcohol 292.0 194.0 Treatment and Re-Evaluation Narrative: White count slightly elevated at 12.6. Chemistry studies unremarkable. Talk screen is negative. Alcohol is 292. COVID test is negative. Patient slept comfortably until 5:30 AM. At this time he is alert and aggressive again. He is demanding his things. He is trying to leave the emergency room. Police are again back at bedside. Patient became aggressive with them and trying to leave. He did require restraints as well as a repeat dose of Geodon. Repeat alcohol level was drawn at this time to calculate his clearance. Alcohol is still elevated at 194. He is clearing at approximate 20 points per hour. This will need to be reevaluated and patient will need to be seen by either crisis or social work to be cleared from a mental health standpoint. This will be signed out to oncoming physician. Discharge Plan Triage Chief Complaint: Mental Health Other Complaint: Suicidal ED Provider: Zenia Osuna Dx/Rx/DC Orders Clinical Impression: Alcohol intoxication Prescriptions: No Action bupropion HCl 150 MG tablet extended release 24 hr 150 mg PO DAILY metformin 500 mg tablet 500 mg DAILY Label Comments: TAKE 1 TABLET BY MOUTH DAILY WITH BREAKFAST omeprazole 20 mg capsule,delayed release(DR/EC) 20 mg DAILY Label Comments: Take 1 capsule by mouth daily before breakfast. 1/2 hr before meal. Primary Care Provider: Aaron Lacey Referrals: Aaron Lacey MD [Primary Care Provider] -
[2022-01-25 01:56] LABS: Amphetamine Urine VISTA NEGATIVE (<1000 ng/mL); Barbiturate Urine VISTA NEGATIVE (< 200 ng/mL); Benzodiazepine Urine VISTA NEGATIVE (< 200 ng/mL); Cocaine Urine VISTA NEGATIVE (< 300 ng/mL); Ecstacy Urine VISTA NEGATIVE (< 500 ng/mL); Methadone Urine VISTA NEGATIVE (< 300 ng/mL); PCP Urine VISTA NEGATIVE (< 25 ng/mL); THC Urine VISTA NEGATIVE (< 50 ng/mL); Vista UDS pH Range 6
--- NOTE | 2022-01-25 06:25 | ED.RN ---
PT WOKE UP YELLING AND STATING I AM LEAVING NOW. I JUST NEED MY CLOTHES. STAFF ATTEMPTED TO DE-ESCALATE, BUT PT BECAME INCREASINGLY BELLIGERENT. SECURITY NOTIFIED AND [employer] CALLED. UPON THEIR ARRIVAL, PT WAS IN THE HALLWAY YELLING AND INSISTING ON LEAVING. STAFF AND [employer] ATTEMPTED TO EXPLAIN THAT HE WAS PINK SLIPPED AND UNABLE TO LEAVE UNTIL HIS SERUM ETOH CAME BACK LEGALLY SOBER AND HE WAS EVALUATED BY THE COUNSELING CENTER. PT WAS ESCORTED BACK TO HIS ROOM BY [employer] AND CONTINUED TO BEHAVE INAPPROPRIATELY. GEODON ORDERED AND WHEN STAFF ATTEMPTED TO GIVE THE MEDICATION THE PT BECAME MORE BELLIGERENT AND ATTEMPTED TO HIT STAFF, SECURITY AN [employer] OFFICERS. PT WAS THEN RESTRAINED AND GEODON WAS GIVEN. WILL CONTINUE TO MONITOR.
--- NOTE | 2022-01-25 06:36 | ED.RN ---
PT CONTINUES TO YELL AND SCREAM,. CALLING STAFFCUNTS. STATES THIS IS AGAINST THE LAW. PT REMINDED WHEN HE CAN STOP SCREAMING AND BEGINS TO ACT APPROPRIATELY STAFF WILL WORK TO REMOVE RESTRAINTS
--- NOTE | 2022-01-25 07:15 | ED.RN ---
This RN spoke with pt, pt would like to atleast have one arm out of restraints. Explained to pt that in the next 15-30mins if he shows that he can corporate with staff, we will take an arm out. I explained to pt that we are waiting on his alcohol level to come down so that he can be evaluated. also explained to pt that as we get him out of restraints he has to stay in his room and he is not allowed to leave until we tell him to.
--- NOTE | 2022-01-25 07:32 | ED.RN ---
Pt's charlie called in to Er, asked pt if he would like to speak with her. pt said no he did not want to speak with her, and he did not want me to speak with her either. Charlie was informed he did not want to speak with her at this time. Pt noted he would call her when he is released.
--- NOTE | 2022-01-25 08:30 | ED.RN ---
Pt is out of restraints, eating breakfast and cooperative.
--- NOTE | 2022-01-25 10:34 | CM.ED ---
Social Work Note SW spoke with technical documentation specialist. Pt is reasonable now and out of restraints. Pt's ETOH level will be redrawn at around 11:00am. SW asked to be updated when pt's results are back and if pt is able to be medically cleared to be seen then. Tia Mueller INVESTIGATIVE SHOPPER, PATHOLOGY SECRETARY/TRANSCRIPTIONIST
--- NOTE | 2022-01-25 15:36 | NURSING ---
FAXED CHART TO [facility]. [id number]
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
--- NOTE | 2022-01-25 20:20 | CM.ED ---
Social Work Note SW to send referrals to inpatient psych units. RANDEE did call [facility] CPS and made CPS report to [place]. SW unsure if pt's children actually heard or saw anything. Pt and pt's Janie states the children did not see or hear anything as they were sleeping but there is the possibility they could've woke up and saw or heard something. Tia Mueller VICTIMS ADVOCATE CLERK/SPECIALIST, CREW BOSS
[2022-01-25] MEDS: Pantoprazole Sodium 20 MG Tablet PO (20:56)
[2022-01-25] MEDS: buPROPion (SR) 150 MG Tablet.SA PO (20:56)
[2022-01-25] MEDS: metFORMIN HCl 500 MG Tablet PO (20:56)
--- NOTE | 2022-01-25 21:44 | CM.ED ---
Social Work Note SW faxed referral to [facility]. RANDEE placed a call to Steph at Crisis and updated her on referral. SW faxed referral to Crisis. Tia Mueller BRANCH SERVICES MANAGER, GEOSCIENCES ASSOCIATE PROFESSOR
[2022-01-26 00:24] VITALS: BP 169/100; PULSE 90; RESP 16; O2SAT 98
--- NOTE | 2022-01-26 00:34 | NURSING ---
ACCEPTED TO [facility] BY DR. QUIROZ ROOM NOT AVAILABLE TILL AFTER 10AM [phone] REPORT
[2022-01-26 01:00] VITALS: BP 192/96; PULSE 106; RESP 16; O2SAT 98
[2022-01-26 02:24] VITALS: RESP 16
[2022-01-26 04:01] VITALS: RESP 18
[2022-01-26 05:32] VITALS: RESP 18
--- NOTE | 2022-01-26 07:12 | ED.RN ---
THIS RN IN TO GIVE PT BREAKFAST. PT AWAKE. PT POLITE,AND COOPERATIVE
[2022-01-26] MEDS: Acetaminophen/Butalbital/Caffe 1 Tablet 2 TABLET PO (08:00)
[2022-01-26] MEDS: Pantoprazole Sodium 20 MG Tablet PO (09:09)
[2022-01-26] MEDS: metFORMIN HCl 500 MG Tablet PO (09:09)
[2022-01-26 09:20] VITALS: BP 190/88; PULSE 104; RESP 16; TEMP 36.6; O2SAT 99
--- NOTE | 2022-01-26 10:20 | CM.ED ---
Social Work Note SW placed a call to [facility] CPS and updated Tracee that pt did go to [facility] today. Tracee states that they are not opening a CPS case but will note the information. Tia Mueller ALTERATION TAILOR, GIFT SHOP MANAGER
== END 2022-01-26 09:23 ==
PROVIDERS: Emergency Medicine; Student in an Organized Health Care Education/Training Program; Emergency Provider Emergency Medicine; PCP Family Medicine; Visit Provider Emergency Medicine
DX: F10.129 Alcohol abuse with intoxication, unspecified (principal); E11.9 Type 2 diabetes mellitus without complications; R45.850 Homicidal ideations; F17.210 Nicotine dependence, cigarettes, uncomplicated; Z59.9 Problem related to housing and economic circumstances, unspecified; F32.A Depression, unspecified; Y90.8 Blood alcohol level of 240 mg/100 ml or more; Z79.899 Other long term (current) drug therapy
CPT/HCPCS: 80048; 80307; 82077; 85025; 87811; 96372; 99284; J3486